=== PATIENT | male | born 1960 | race Caucasian/White ===

== ENCOUNTER 2016-10-19 08:40 | Inpatient (IN) | payer MEDICAID ==
[~2016-10-19] VITALS: Ht 188 cm; Wt 90.0 kg
[~2016-10-19 08:40] MED LIST: ASPI81CH43; NITR0.4S31
[2016-10-19] MEDS ORDERED: SODIUM CHLORIDE 0.9% 500 ML IV ONE (08:57)
[2016-10-19 09:34] LABS: Basophils # (auto) 0 uL; Eosinophils # (auto) 0 uL; Eosinophils % (auto) 0.1 % (0.0-7.0); Hematocrit 53.8 % (41.0-53.0); Hemoglobin 18.9 g/dL (13.5-17.5); Lymphocytes # (auto) 0.9 uL; Lymphocytes % (auto) 7.6 % (10.0-50.0); Mean Corpuscular Hemoglobin 33.7 pg (28.0-32.0); Mean Corpuscular Hgb Conc. 35.1 g/dL (32.0-36.0); Mean Corpuscular Volume 96.2 fL (80.0-100.0); Mean Platelet Volume 8.4 fL (7.4-10.4); Monocytes # (auto) 0.6 uL; Monocytes % (auto) 5.1 % (0.0-12.0); Neutrophils # (auto) 10.6 uL; Neutrophils % (auto) 87.2 % (37.0-80.0); Platelet Count (auto) 237 10^3/uL (140-450); Red Cell Distribution Width 14.6 % (11.6-16.0); White Blood Cell 12.1 10^3/uL (4.4-10.8)
[2016-10-19] MEDS ORDERED: SODIUM CHLORIDE 0.9% 1,000 ML IV ONE (09:53)
[2016-10-19] MEDS ORDERED: ONDANSETRON HCL 4 MG/2 ML VIAL IV ONE (10:00)
[2016-10-19] MEDS ORDERED: MORPHINE SULFATE 4 MG/ML SYRG IV ONE (10:00)
[2016-10-19 10:06] LABS: Albumin 3.8 g/dL (3.4-5.0); BUN/Creatinine Ratio 17.3; Calcium 9.4 mg/dL (8.5-10.1)
[2016-10-19 10:08] LABS: Bilirubin, Total 1.5 mg/dL (0.2-1.0); Total Protein 8.4 g/dL (6.4-8.2)
[2016-10-19] MEDS ORDERED: PANTOPRAZOLE SODIUM 40 MG/10 ML VIAL IV ONE (10:30)
[2016-10-19 10:43] LABS: Urine Blood Negative /uL (Negative); Urine Color Brown (Yellow); Urine Glucose TRACE mg/dL (Normal); Urine Mucus MODERATE (None Seen); Urine Nitrite Negative (Negative); Urine RBC 1 /hpf (0 - 3); Urine Squamous Epithelial Cell FEW /hpf (<5); Urine pH 6.5 (5.0-8.0)
[2016-10-19 10:45] LABS: Urine Ketone 3+ (Negative)
[2016-10-19 11:03] LABS: Urine Bilirubin Negative (Negative)
[2016-10-19] MEDS ORDERED: NITROGLYCERIN 0.4 MG SL TAB SL PRN (13:00)
[2016-10-19] MEDS ORDERED: TEMAZEPAM 15 MG CAP PO PRN (13:00)
[2016-10-19] MEDS ORDERED: ACETAMINOPHEN 325 MG TAB PO PRN (13:00)
[2016-10-19] MEDS ORDERED: cefTRIAXone 1GM/50ML D5W 50 ML IV ONE (13:00)
[2016-10-19] MEDS ORDERED: FAMOTIDINE (10MG/ML) 2ML VL IV ONE (13:00)
[2016-10-19] MEDS ORDERED: HYDROcodone-ACET 5/325MG TAB PO PRN (13:00)
[2016-10-19] MEDS ORDERED: MORPHINE SULF INJ 2 MG/ML SYRINGE 1ML IV PRN ×2 (13:00)
[2016-10-19] MEDS ORDERED: DEXTROSE (50%) 50ML SYRG IV PRN (13:00)
[2016-10-19] MEDS ORDERED: ONDANSETRON HCL 4 MG/2 ML VIAL IV PRN (13:00)
[2016-10-19] MEDS ORDERED: DOCUSATE SOD 100 MG CAP PO PRN (13:00)
[2016-10-19] MEDS: SODIUM CHLORIDE 0.9% 1,000 ML IV SCH ×2 (13:11→21:13)
[2016-10-19 13:20] LABS: INR 0.92 (0.9-1.15)
[2016-10-19] MEDS ORDERED: POTASSIUM CHLORIDE 40 MEQ, LIDOCAINE 1% (LOCAL ANESTH.) 4 ML in SODIUM CHL 0.9% 250 ML IV ONE (13:30)
[2016-10-19] MEDS ORDERED: LABETALOL HCL 5 MG/ML 4ML SYRINGE IV PRN (13:45)
[2016-10-19] MEDS ORDERED: LABETALOL HCL 5 MG/ML 4ML SYRINGE IV ONE (13:45)
[2016-10-19] MEDS: ENALAPRIL MALEATE 10 MG TAB PO SCH (15:32)
[2016-10-19] MEDS: metroNIDAZOLE 500MG/100ML 100 ML IV SCH ×2 (15:32→21:26)
[2016-10-19] MEDS: InsuLIN REG 1unit/0.01ml Soln (100units/ml) SC SCH ×2 (17:00→21:37)
[2016-10-19] MEDS: SUCRALFATE 1 GM/10 ML ORAL SUSP PO SCH ×2 (17:44→21:26)
[2016-10-19] MEDS: ACCU-CHEK COMFORT CURVE STRIP VI SCH ×2 (17:44→21:26)
[2016-10-19] MEDS: cloNIDine HCL 0.1 MG TAB PO PRN (18:58)
[2016-10-19 19:18] VITALS: BP 160/102
[2016-10-19] MEDS: PANTOPRAZOLE SODIUM 40 MG/10 ML VIAL IV SCH (21:26)
[2016-10-19] MEDS ORDERED: HYDR-531 PO (21:40)
[2016-10-19] MEDS ORDERED: ALBU18 IN (21:41)
[2016-10-19] MEDS ORDERED: HYDR25TA4 PO (21:41)
[2016-10-19 22:00] VITALS: BP 129/76
[2016-10-19] MEDS ORDERED: FAMOTIDINE (10MG/ML) 2ML VL IV SCH (22:00)
[2016-10-19] MEDS ORDERED: ATORVASTATIN 20 MG TAB PO SCH (22:00)
[2016-10-20 05:00] VITALS: BP 166/98
[2016-10-20] MEDS: SODIUM CHLORIDE 0.9% 1,000 ML IV SCH (05:31)
[2016-10-20] MEDS: SUCRALFATE 1 GM/10 ML ORAL SUSP PO SCH ×2 (06:24→11:01)
[2016-10-20] MEDS: ACCU-CHEK COMFORT CURVE STRIP VI SCH ×2 (06:25→12:19)
[2016-10-20] MEDS: metroNIDAZOLE 500MG/100ML 100 ML IV SCH (06:25)
[2016-10-20] MEDS: InsuLIN REG 1unit/0.01ml Soln (100units/ml) SC SCH ×2 (06:25→11:30)
[2016-10-20] MEDS: cloNIDine HCL 0.1 MG TAB PO PRN (06:26)
[2016-10-20 06:58] LABS: Potassium 3.2 mmol/L (3.5-5.1)
[2016-10-20 07:05] LABS: Albumin 2.9 g/dL (3.4-5.0); BUN/Creatinine Ratio 22.1; Calcium 8.1 mg/dL (8.5-10.1)
[2016-10-20 07:08] LABS: Total Protein 6.1 g/dL (6.4-8.2)
[2016-10-20 07:17] LABS: Basophils # (auto) 0 uL; Basophils % (auto) 0.5 % (0.0-2.0); Eosinophils # (auto) 0 uL; Eosinophils % (auto) 0.1 % (0.0-7.0); Hemoglobin 14.4 g/dL (13.5-17.5); Lymphocytes # (auto) 1.2 uL; Lymphocytes % (auto) 15.1 % (10.0-50.0); Mean Corpuscular Hemoglobin 33.5 pg (28.0-32.0); Mean Corpuscular Hgb Conc. 33.6 g/dL (32.0-36.0); Mean Corpuscular Volume 99.6 fL (80.0-100.0); Mean Platelet Volume 8.4 fL (7.4-10.4); Monocytes # (auto) 0.6 uL; Neutrophils # (auto) 6.2 uL; Neutrophils % (auto) 76.3 % (37.0-80.0); Platelet Count (auto) 191 10^3/uL (140-450); Red Cell Distribution Width 14.5 % (11.6-16.0); White Blood Cell 8.1 10^3/uL (4.4-10.8)
[2016-10-20 09:00] VITALS: BP 138/71
[2016-10-20] MEDS ORDERED: cefTRIAXone 1GM/50ML D5W 50 ML IV SCH (09:00)
[2016-10-20] MEDS ORDERED: MULTIPLE VITAMIN TAB PO SCH (10:00)
[2016-10-20] MEDS: PANTOPRAZOLE SODIUM 40 MG/10 ML VIAL IV SCH (11:00)
[2016-10-20] MEDS: ENALAPRIL MALEATE 10 MG TAB PO SCH (11:01)
[2016-10-20 12:37] VITALS: BP 150/76
[2016-10-20] MEDS ORDERED: PANT40TA2 PO (13:20)
[2016-10-20 15:14] VITALS: BP 138/71
== END 2016-10-20 18:10 | disposition home or self-care (01) | DRG 241 ==
LOC: ER 08:40 → TELE 08:41 → TELE-WESTW 18:11
PROVIDERS: ADMIT Internal Medicine; ATTEND Internal Medicine
DX: K29.00 Acute gastritis without bleeding (principal); D75.1 Secondary polycythemia; I12.9 Hypertensive chronic kidney disease with stage 1 through stage 4 chronic kidney disease, or unspecified chronic kidney disease; E78.5 Hyperlipidemia, unspecified; E86.0 Dehydration; E87.6 Hypokalemia; F17.210 Nicotine dependence, cigarettes, uncomplicated; N18.2 Chronic kidney disease, stage 2 (mild); I25.10 Atherosclerotic heart disease of native coronary artery without angina pectoris; K40.90 Unilateral inguinal hernia, without obstruction or gangrene, not specified as recurrent; K80.20 Calculus of gallbladder without cholecystitis without obstruction; R73.9 Hyperglycemia, unspecified; G89.29 Other chronic pain; N28.1 Cyst of kidney, acquired; Z79.891 Long term (current) use of opiate analgesic; I25.2 Old myocardial infarction; Z83.3 Family history of diabetes mellitus
CPT/HCPCS: 36415; 71010; 74176; 80053; 81001; 82962; 83036; 83690; 85025; 85610; 86677; 87040; 93005; 94761; 96361; 96365; 96375; C9113; J0696; J2001; J2405; J3490

== ENCOUNTER 2017-05-19 07:52 | Emergency (ER) | payer MEDICAID ==
[~2017-05-19] VITALS: Ht 188 cm; Wt 95.3 kg
[~2017-05-19 07:52] MED LIST changes: +ALBU18 IN; -ASPI81CH43; +HYDR-531 PO; +HYDR25TA4 PO; -NITR0.4S31; +PANT40TA2 PO
[2017-05-19 09:10] VITALS: BP 131/87
== END 2017-05-19 09:48 | disposition home or self-care (01) ==
LOC: ER 07:52
DX: I10 Essential (primary) hypertension (principal); E78.5 Hyperlipidemia, unspecified; I25.2 Old myocardial infarction; F17.210 Nicotine dependence, cigarettes, uncomplicated
CPT/HCPCS: 93005

== ENCOUNTER 2017-12-22 07:41 | Emergency (ER) | payer MEDICAID ==
[~2017-12-22] VITALS: Ht 188 cm; Wt 97.5 kg
[2017-12-22 07:52] VITALS: BP 160/105
[2017-12-22] MEDS ORDERED: KETOROLAC TROMETH 60MG/2ML VIAL IM ONE (08:45)
== END 2017-12-22 09:29 | disposition home or self-care (01) ==
LOC: ER 07:41
DX: S83.8X2A Sprain of other specified parts of left knee, initial encounter (principal); M17.12 Unilateral primary osteoarthritis, left knee; M11.262 Other chondrocalcinosis, left knee; E78.5 Hyperlipidemia, unspecified; I10 Essential (primary) hypertension; F17.210 Nicotine dependence, cigarettes, uncomplicated; Z79.899 Other long term (current) drug therapy; W01.198A Fall on same level from slipping, tripping and stumbling with subsequent striking against other object, initial encounter; Y93.01 Activity, walking, marching and hiking; Y99.8 Other external cause status; Y92.89 Other specified places as the place of occurrence of the external cause
CPT/HCPCS: 73562; 96372; 99284; J1885

== ENCOUNTER 2017-12-29 03:34 | Emergency (ER) | payer MEDICAID ==
[~2017-12-29] VITALS: Ht 188 cm; Wt 97.5 kg
[2017-12-29 03:45] VITALS: BP 142/87
== END 2017-12-29 07:20 | disposition home or self-care (01) ==
LOC: ER 03:38
DX: R20.0 Anesthesia of skin (principal); I10 Essential (primary) hypertension; E78.5 Hyperlipidemia, unspecified; F17.210 Nicotine dependence, cigarettes, uncomplicated; F12.10 Cannabis abuse, uncomplicated; M25.532 Pain in left wrist; M79.642 Pain in left hand
CPT/HCPCS: 73110; 73130